=== PATIENT | female | born 1960 | race Caucasian/White ===

== ENCOUNTER → 2016-11-04 | Outpatient (CLI) | payer OTHER ==
--- NOTE | 2016-11-04 22:43 | MR ---
EXAMINATION TYPE: MR knee RT wo con DATE OF EXAM: 11/04/2016 10:11 PM COMPARISON: Prior MRI right knee January 26, 2016. HISTORY: Right knee pain, unilateral primary osteoarthritis, hemarthrosis, and possible internal arra ngement all per order. Pain and swelling for 2.5 weeks after injury per patient. TECHNIQUE: Multiplanar, multisequence images of the knee is performed without IV contrast. FINDINGS: MEDIAL MENISCUS: Anterior and posterior horns are intact without tear. LATERAL MENISCUS: Posterior horn is intact without tear. There is globular increased signal anterior horn of lateral meniscus appears to extend to inferior articular surface centrally. Findings are cons istent with full-thickness meniscal tear seen best sagittal image 22 unchanged from prior exam. Adjac ent paraMeniscal cyst is seen anteriorly. CRUCIATE LIGAMENTS: The anterior and posterior cruciate ligaments are intact and unremarkable. COLLATERAL LIGAMENTS: The medial collateral ligament and lateral collateral ligament complex are inta ct and unremarkable. EXTENSOR MECHANISM: Visualized quadriceps and patellar tendons are intact. EFFUSION: There is moderate to large size suprapatellar joint effusion redemonstrated. POPLITEAL CYST: No popliteal/gore cyst. TRICOMPARTMENT SPACES: Marked joint space loss patellofemoral compartment is redemonstrated with mild spurring inferiorly. There is mild to moderate joint space loss with mild spurring in the lateral an d medial tibiofemoral compartments. CARTILAGE: There is marked cartilaginous loss over the posterior patellar pole inferior aspect with c artilaginous loss cartilaginous loss noted. BONE MARROW SIGNAL: There is some areas of heterogeneous increased T2 signal involving the posterior patellar pole at level of full-thickness cartilaginous loss redemonstrated with progression from prio r study. There is new heterogeneous increased T2 signal involving the posterior lateral tibial plateau. Additi on there is linear T1 signal now present seen best sagittal image 22 and coronal image 21 consistent with acute nondisplaced fracture and surrounding edema. OTHER: No additional significant abnormality is appreciated. IMPRESSION: 1. New acute nondisplaced intra-articular fracture involving posterior aspect of the lateral tibial p lateau with surrounding edema noted. 2. Redemonstration of irregular full-thickness tear involving anterior horn of lateral meniscus. 3. Persistent moderate to large size suprapatellar joint effusion. 4. Fairly moderate tricompartment degenerative changes with interval progression of full-thickness ch ondromalacia patella as detailed above.
== END | disposition home or self-care (01) ==
LOC: RADMRIMAIN 21:45
PROVIDERS: ATTEND Orthopaedic Surgery
DX: S82.144A Nondisplaced bicondylar fracture of right tibia, initial encounter for closed fracture (principal); S83.281A Other tear of lateral meniscus, current injury, right knee, initial encounter; M25.461 Effusion, right knee; M22.41 Chondromalacia patellae, right knee; X58.XXXA Exposure to other specified factors, initial encounter

== ENCOUNTER → 2018-04-28 | Outpatient (CLI) | payer OTHER ==
--- NOTE | 2018-04-28 15:29 | BD ---
EXAMINATION TYPE: Axial Bone Density DATE OF EXAM: 04/28/2018 CLINICAL HISTORY: Postmenopausal female. Osteoporosis screening. Height: 65 inches Weight: 184 FRAX RISK QUESTIONS: Alcohol (3 or more units per day): no Family History (Parent hip fracture): no Glucocorticoids (More than 3mos): no (Ex: prednisone, prednisolone, methylprednisolone, dexamethasone, and hydrocortisone). History of Fracture in Adulthood: no Secondary Osteoporosis: 1. Type 1 Diabetes: no 2. Hyperthyroidism: no 3. Menopause before 45: no 4. Malnutrition: no 5. Chronic liver disease: no Rheumatoid Arthritis: no Current Tobacco Use: no RISK FACTORS HISTORY OF: Family History of Osteoporosis: no Active: no Diet low in dairy products/other sources of calcium: no Postmenopausal woman: yes Take estrogen and/or progesterone medications: not now How Long: Hormonal contraceptives about 12 yea rs Lost more than 2 inches in height since high school: no Frequent falls: no Poor Health: no Hyperparathyroidism: no Adrenal Insufficiency: no MEDICATIONS: Prednisone or other steroids: no Thyroid Medications: no Osteoporosis Medications: no Additional Medications: none except Citracal Additional History: EXAM MEASUREMENTS: Bone mineral densitometry was performed using the EndoStim System. Bone mineral density as measured about the Lumbar spine is: ----- L1-L4(G/cm2): 1.093 T Score Values are as follows: ----- L2: -1.5 ----- L3: -0.8 ----- L4: 0.1 ----- L1-L4: -0.7 Bone mineral density BASELINE Bone mineral density about the R hip (g/cm2): 0.843 Bone mineral density about the L hip (g/cm2): 0.877 T Score values are as follows: -----R Neck: -1.4 -----L Neck: -1.2 -----R Total: -0.8 -----L Total: -0.5 Bone mineral density BASELINE IMPRESSION: Osteopenia (T Score between -2.5 and -1). There is slightly increased risk of fracture and the patient may be considered for treatment. Re-Screen 2-5 years. NOTE: T-SCORE=SD OF THE YOUNG ADULT MEAN.
--- NOTE | 2018-04-29 09:26 | MM ---
Reason for exam: screening (asymptomatic). Last mammogram was performed 3 years and 8 months ago. History: Patient is postmenopausal and had first child at age 38. Took hormonal contraceptives for 12 years. Physical Findings: A clinical breast exam by your physician is recommended on an annual basis and results should be correlated with mammographic findings. MG Screening Mammo w CAD Bilateral CC and MLO view(s) were taken. Prior study comparison: September 06, 2014, bilateral MG diagnostic mammo w CAD [facility]. October 21, 2012, [facility] DIGITAL LEFT BREAST MAMMOGRAM w/CAD. The breast tissue is heterogeneously dense. This may lower the sensitivity of mammography. There is no discrete abnormality. ASSESSMENT: Negative, BI-RAD 1 RECOMMENDATION: Routine screening mammogram of both breasts in 1 year.
== END | disposition home or self-care (01) ==
LOC: RADMAMWWP 08:15
PROVIDERS: ATTEND Obstetrics & Gynecology
DX: Z12.31 Encounter for screening mammogram for malignant neoplasm of breast (principal); M85.851 Other specified disorders of bone density and structure, right thigh; M85.852 Other specified disorders of bone density and structure, left thigh; M85.88 Other specified disorders of bone density and structure, other site
CPT/HCPCS: 77067; 77080

== ENCOUNTER → 2022-04-19 | Outpatient (CLI) | payer BC ==
--- NOTE | 2022-04-19 11:23 | USB ---
Reason for Exam: Clinical finding. Patient History: Menarche at age 11. First Full-Term at age 38. Late child-bearing (after 30). Postmenopausal. Patient used Hormonal Contraceptives for 12 years. Risk Values: Sara 5 year model risk: 2.2%. NCI Lifetime model risk: 9.1%. Technique: Method: Targeted. Prior Study Comparison: 10/21/2012 Left Diagnostic Mammogram, [facility]. 09/06/2014 Bilateral Diagnostic Mammogram, [facility]. 04/28/2018 Bilateral Screening Mammogram, [facility]. Findings: The area of palpable concern of the left breast, the axilla of the left breast and the retroareolar of the left breast were scanned. No solid or cystic masses are identified. No discrete abnormality at the palpable region left breast. Overall Assessment: Negative, BI-RAD 1 Management: Diagnostic Mammogram of the left breast in 6 months. A clinical breast exam by your physician is recommended on an annual basis and results should be correlated with mammographic findings. Electronically signed and approved by: Curtis Florez D.O. Radiologis
--- NOTE | 2022-04-19 11:26 | MM ---
Reason for Exam: Clinical finding. Last mammogram was performed 4 year(s) and 0 month(s) ago. Patient History: Menarche at age 11. First Full-Term at age 38. Late child-bearing (after 30). Postmenopausal. Patient used Hormonal Contraceptives for 12 years. Risk Values: Sara 5 year model risk: 2.2%. NCI Lifetime model risk: 9.1%. Prior Study Comparison: 10/21/2012 Left Diagnostic Mammogram, [facility]. 09/06/2014 Bilateral Diagnostic Mammogram, [facility]. 04/28/2018 Bilateral Screening Mammogram, [facility]. Tissue Density: The breast tissue is heterogeneously dense. This may lower the sensitivity of mammography. Analyzed By CAD. Overall Assessment: Probably benign, BI-RAD 3 Management: Diagnostic Mammogram in 6 months. Electronically signed and approved by: Curtis Florez D.O. Radiologis
--- NOTE | 2022-04-19 16:34 | BD ---
EXAMINATION TYPE: Axial Bone Density DATE OF EXAM: 04/19/2022 COMPARISON: 04.28.2018 CLINICAL HISTORY: 62 years year old Female. ICD-10 CODE: Z780, N951, [id number] DISORDER OF BONE Height: 64.1 Weight: 192 FRAX RISK QUESTIONS: History of Fracture in Adulthood: YES RISK FACTORS HISTORY OF: HX OF FOOT FX AN ADULT Active: YES Hyperparathyroidism: NO Adrenal Insufficiency: NO MEDICATIONS: Additional Medications: VIT D AND CALCIUM, Additional History: NOTHING ADDITIONAL TO ADD HERE EXAM MEASUREMENTS: Bone mineral densitometry was performed using the Bid Nerd System. Bone mineral density as measured about the Lumbar spine is: ----- L1-L4(G/cm2): 0.988 T Score Values are as follows: ----- L1: -1.7 ----- L2: -2.5 ----- L3: -2.1 ----- L4: -0.4 ----- L1-L4: -1.6 Bone mineral density has: Decreased -9.6% since study of: 04.28.2018 Bone mineral density about the R hip (g/cm2): 0.869 Bone mineral density about the L hip (g/cm2): 0.918 T Score values are as follows: -----R Neck: -1.6 -----L Neck: -1.4 -----R Total: -1.1 -----L Total: -0.7 Bone mineral density has: Decreased -3.0% since study of: 04.28.2018 FRAX%s: The graph provided illustrates a 14.3% chance for a major osteoporotic fx and a 1.5% chance f or the hips probability for fx in 10 years time. IMPRESSION: Osteopenia (T Score between -2.5 and -1). There is slightly increased risk of fracture and the patient may be considered for treatment. Re-Screen 2-5 years. NOTE: T-SCORE=SD OF THE YOUNG ADULT MEAN.
== END | disposition home or self-care (01) ==
LOC: RADBDWWP 09:52
PROVIDERS: ATTEND Obstetrics & Gynecology
DX: N63.0 Unspecified lump in unspecified breast (principal); N95.1 Menopausal and female climacteric states
CPT/HCPCS: 77066; 77080

== ENCOUNTER → 2022-05-23 | Outpatient (CLI) | payer BC ==
[2022-05-23 14:53] VITALS: BP 136/82; PULSE 78; RESP 17; TEMP 98.9
--- NOTE | 2022-05-23 15:16 | P.GSHP ---
History of Present Illness H&P Date: 05/23/22 Chief Complaint: lump in left breast Karime is a 62 year old white female seen in consultation for Dr. Jean regarding a lump in her left breast. She had a bilateral mammogram performed in . Following this she underwent an ultrasound of the left breast. The patient did not have any discrete abnormalities on the mammogram or ultrasound. This was felt to be probably benign BIRADS 3. And a diagnostic left breast mammogram in 6 months was recommended. The area of nodularity felt by the patient was first noticed in January. The patient states it has not changed. It is not painful. She has not had any surgery on her breast. She's not had any trauma to her breast. She has not had any infections in her breast. She is not complaining of any skin changes or nipple discharge. 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 Arthroscopic procedure right leg Medical History: none Social history: Nicotine: Negative Alcohol: Occasional Drugs: Negative - Constitutional Constitutional: Denies chills, Denies fever - EENT Eyes: denies blurred vision, denies pain Ears: deny: decreased hearing, tinnitus Ears, nose, mouth and throat: Denies headache, Denies sore throat - Breasts Breasts: bilateral: as per HPI - Cardiovascular Cardiovascular: Denies chest pain, Denies shortness of breath - Respiratory Respiratory: Denies cough, Denies 7 - Gastrointestinal Gastrointestinal: Denies abdominal pain, Denies diarrhea, Denies nausea, Denies vomiting - Genitourinary (Female) Genitourinary: Denies dysuria, Denies hematuria - Menstruation Menstruation: Reports as per HPI - Musculoskeletal Musculoskeletal: Denies myalgias - Integumentary Integumentary: Denies pruritus, Denies rash - Neurological Neurological: Denies numbness, Denies weakness - Psychiatric Psychiatric: Denies anxiety, Denies depression - Endocrine Endocrine: Denies fatigue, Denies weight change - Hematologic/Lymphatic Comment: none - Allergic/Immunologic Comment: none Past Medical History Past Medical History: Cancer Additional Past Medical History / Comment(s): SKIN CANCER History of Any Multi-Drug Resistant Organisms: None Reported Past Surgical History: Orthopedic Surgery Past Anesthesia/Blood Transfusion Reactions: No Reported Reaction Past Psychological History: No Psychological Hx Reported Smoking Status: Never smoker Past Alcohol Use History: None Reported Past Drug Use History: None Reported Medications and Allergies Home Medications Medication Instructions Recorded Confirmed Type Calcium Carbonate [Calcium] 600 mg PO BID 05/23/22 05/23/22 History Cholecalciferol (Vitamin D3) 125 mcg PO DAILY 05/23/22 05/23/22 History [Vitamin D3 (125 MCG = 5,000 IU)] Multivitamin [Multivitamins Adult 1 cap PO DAILY 05/23/22 05/23/22 History Gummies] Allergies Allergy/AdvReac Type Severity Reaction Status Date / Time No Known Allergies Allergy Unverified 05/23/22 14:31 Surgical - Exam Vital Signs Temp Pulse Resp BP Pulse Ox 98.9 F 78 17 136/82 96 05/23/22 14:50 05/23/22 14:50 05/23/22 14:50 05/23/22 14:50 05/23/22 14:50 - General no distress - Eyes normal ocular movement - ENT no hearing loss - Neck trachea midline - Respiratory normal respiratory effort - Cardiovascular Rhythm: regular Heart Sounds: normal: S1, S2 - Abdomen Abdomen: soft, non tender, no guarding, no rigid, no rebound - Integumentary normal turgor - Neurologic no disoriented, no combative - Musculoskeletal normal gait, normal posture - Psychiatric oriented to time, oriented to person, oriented to place, speech is normal, memory intact Breast Exam: BRA: 44D Inspection: Bilateral grade 2 ptosis Palpation: Right breast: Multi-positional exam fibrocystic changes no dominant masses or nodules of concern Right axilla: No adenopathy of concern Left breast: Multi-positional exam fibrocystic changes no dominant masses or nodules of concern Left axilla: No adenopathy of concern Results Mammogram and ultrasound reviewed with Dr. Florez; no specific lesions of concern in the breast specifically attention is patent the area of palpable change as per the patient Assessment and Plan Assessment: Impression: Fibrocystic breast changes No radiographic abnormality of concern in either breast Dense breast on examination Plan: We will attempt to get it breast MRI to better evaluate the area that the patient feels of concern, if we are unable to secondary to insurance we will repeat a left breast mammogram and ultrasound in 6 months with follow-up at that time Cc: Dr. Jean, Dr. Browning
== END | disposition home or self-care (01) ==
LOC: WWCWWP 13:58
PROVIDERS: ATTEND Surgery
DX: Z53.9 Procedure and treatment not carried out, unspecified reason (principal)

== ENCOUNTER → 2022-12-11 | Outpatient (CLI) | payer BC ==
--- NOTE | 2022-12-11 09:19 | MM ---
Reason for Exam: Clinical finding. Last screening mammogram was performed 7 month(s) ago. Patient History: Menarche at age 11. First Full-Term at age 38. Late child-bearing (after 30). Postmenopausal. Patient used Hormonal Contraceptives for 12 years. Risk Values: Sara 5 year model risk: 2.2%. NCI Lifetime model risk: 9.1%. Prior Study Comparison: 09/06/2014 Bilateral Diagnostic Mammogram, [facility]. 04/28/2018 Bilateral Screening Mammogram, [facility]. 04/19/2022 Bilateral MG diagnostic mammo w CAD MU, [facility]. Tissue Density: Left: There are scattered fibroglandular densities. Findings: Analyzed By CAD. 9 mm elongated isodense nodular focal asymmetry approximately 3-4 o'clock posterior depth left breast. Not seen prior to the 04/19/2022 exam. Otherwise, no significant change. Further ultrasound evaluation recommended. Overall Assessment: Incomplete: need additional imaging evaluation, BI-RAD 0 Management: Diagnostic Breast Ultrasound of the left breast. Electronically signed and approved by: Mariana Brantley M.D. Radiologist
--- NOTE | 2022-12-11 11:31 | USB ---
Reason for Exam: Clinical finding. Patient History: Menarche at age 11. First Full-Term at age 38. Late child-bearing (after 30). Postmenopausal. Patient used Hormonal Contraceptives for 12 years. Risk Values: Sara 5 year model risk: 2.2%. NCI Lifetime model risk: 9.1%. Technique: Method: Targeted. Prior Study Comparison: 09/06/2014 Bilateral Diagnostic Mammogram, [facility]. 04/28/2018 Bilateral Screening Mammogram, [facility]. 04/19/2022 Bilateral MG diagnostic mammo w CAD MU, [facility]. Findings: The lateral section of the breast of the left breast, the axilla of the left breast and the retroareolar of the left breast were scanned. Targeted ultrasound lateral left breast 3 to 4:00 position. At the 3:00 position, 6 cm from the nipple, there is either a 7 x 4 x 4 mm cyst cluster versus complex cyst. Likely mammographic correlate. No other solid or cystic lesion. Some mild duct ectasia is noted behind the nipple. Overall Assessment: Probably benign, BI-RAD 3 Management: Diagnostic Mammogram of the left breast in 6 months. A clinical breast exam by your physician is recommended on an annual basis and results should be correlated with mammographic findings. This exam should not preclude additional follow-up of suspicious palpable abnormalities. Results were given to the patient verbally at the time of exam. Electronically signed and approved by: Mariana Brantley M.D. Radiologist
== END | disposition home or self-care (01) ==
LOC: RADMAMWWP 08:10
PROVIDERS: ATTEND Surgery
DX: N64.89 Other specified disorders of breast (principal); R92.8 Other abnormal and inconclusive findings on diagnostic imaging of breast; Z78.0 Asymptomatic menopausal state
CPT/HCPCS: 77061; 77065

== ENCOUNTER → 2023-08-22 | Outpatient (CLI) | payer BC ==
--- NOTE | 2023-08-26 22:17 | MM ---
Reason for Exam: Screening (asymptomatic). Last mammogram was performed 1 year(s) and 4 month(s) ago. Patient History: Menarche at age 11. First Full-Term at age 38. Late child-bearing (after 30). Postmenopausal. Patient used Hormonal Contraceptives for 12 years. Risk Values: Sara 5 year model risk: 2.2%. NCI Lifetime model risk: 8.9%. Prior Study Comparison: 04/28/2018 Bilateral Screening Mammogram, [facility]. 04/19/2022 Bilateral MG diagnostic mammo w CAD MU, [facility]. 12/11/2022 Left MG 3D diag mammo w/cad LT, [facility]. Tissue Density: There are scattered fibroglandular densities. Findings: Analyzed By CAD. Unchanged areas of asymmetric density bilaterally. There is no suspicious group of microcalcifications or new suspicious mass in either breast. Overall Assessment: Benign, BI-RAD 2 Management: Screening Mammogram of both breasts in 1 year. . Patient should continue monthly self-breast exams. A clinical breast exam by your physician is recommended on an annual basis. This exam should not preclude additional follow-up of suspicious palpable abnormalities. Note on Sara scores and lifetime risk: 1. A Sara score greater than 3% is considered moderate risk. If this is the case, consider specialist referral to assess eligibility for a risk reducing agent. 2. If overall lifetime risk for the development of breast cancer is 20% or higher, the patient may qualify for future screening with alternating mammogram and breast MRI. Electronically signed and approved by: Mariana Brantley M.D. Radiologist
== END | disposition home or self-care (01) ==
LOC: RADMAMWWP 15:32
PROVIDERS: ATTEND Obstetrics & Gynecology
DX: Z12.31 Encounter for screening mammogram for malignant neoplasm of breast (principal); Z78.0 Asymptomatic menopausal state
CPT/HCPCS: 77067

== ENCOUNTER → 2024-07-30 | Day surgery (SDC) | payer BC ==
[2024-07-28 10:02] VITALS: BMI 29.6
[~2024-07-30] MED LIST: LACTATED RINGERS 1,000 ML IV SCH; PROPOFOL 10 MG/ML 20 ML VIAL IV ONE
[2024-07-30 10:05] VITALS: TEMP 97.4
[2024-07-30] MEDS: LACTATED RINGERS 1,000 ML IV ONE (10:15)
--- NOTE | 2024-07-30 10:30 | P.PCN ---
Date of Procedure: 07/30/24 Procedure(s) Performed: BRIEF HISTORY: Patient is a 64-year-old pleasant white female scheduled for an elective colonoscopy as a part of screening for colon cancer. PROCEDURE PERFORMED: Colonoscopy with biopsy. PREOPERATIVE DIAGNOSIS: Screening for colon cancer. IV sedation per Anesthesia. PROCEDURE: After informed consent was obtained, the patient, was brought into the endoscopy unit. IV sedation was administered by Anesthesia under continuous monitoring. Digital rectal examination was normal. Initially the Olympus CF-160 flexible video colonoscope was then inserted in the rectum, gradually advanced into the cecum without any difficulty. Careful examination was performed as the scope was gradually being withdrawn. Ileocecal valve and the appendiceal orifice were visualized and appeared normal. Prep was excellent. Mucosa of the cecum, appeared normal. In the ascending colon there was a 3 mm sessile polyp that was removed by cold biopsy. Rest of the ascending colon, transverse colon, descending colon, sigmoid colon, and rectum appeared normal. Retroflexion was performed in the rectum and no lesions were seen. Scattered sigmoid diverticulosis. The patient tolerated the procedure well. IMPRESSION: 3 mm ascending colon polyp status post cold biopsy Scattered sigmoid diverticulosis RECOMMENDATIONS: Findings of this examination were discussed with the patient as well as her family.. She was advised to follow-up with the biopsy results. If the biopsy reveals adenoma she can have repeat colonoscopy in 7-10 years.
[2024-07-30 11:01] VITALS: BP 128/82; PULSE 85; RESP 18
== END | disposition home or self-care (01) ==
LOC: ORWHC2ENDO 09:30
PROVIDERS: ATTEND Internal Medicine Gastroenterology
DX: Z12.11 Encounter for screening for malignant neoplasm of colon (principal); D12.2 Benign neoplasm of ascending colon; K57.30 Diverticulosis of large intestine without perforation or abscess without bleeding; Z79.899 Other long term (current) drug therapy
CPT/HCPCS: 88305; 45380; J2704